=== PATIENT | male | born 1990 | race Caucasian/White ===

== ENCOUNTER 2020-09-14 07:51 | Emergency (ER) | payer SELFPAY ==
[~2020-09-14] VITALS: Ht 162.6 cm; Wt 72.0 kg
[2020-09-14] MEDS ORDERED: CLIN300C12 MT (08:21)
[2020-09-14] MEDS ORDERED: AMOX-424 MT (08:21)
[2020-09-14] MEDS ORDERED: IBUP-2029 MT (08:21)
[2020-09-14] MEDS ORDERED: IBUPROFEN 600MG TABLET PO ONE (08:30)
[2020-09-14 09:22] VITALS: BP 112/89
== END 2020-09-14 09:24 | disposition home or self-care (01) ==
LOC: ER 07:51
DX: L02.31 Cutaneous abscess of buttock (principal)
CPT/HCPCS: 99282

== ENCOUNTER 2020-09-17 21:32 | Emergency (ER) | payer SELFPAY ==
[~2020-09-17] VITALS: Ht 162.6 cm; Wt 76.0 kg
[~2020-09-17 21:32] MED LIST: AMOX-424 MT; CLIN300C12 MT; IBUP-2029 MT
[2020-09-17] MEDS ORDERED: TETANUS, DIPHTHERIA, PERTUSSIS VAC/PF 0.5ML (>7YR OLD) IM ONE (22:30)
[2020-09-17 22:43] VITALS: BP 131/89
== END 2020-09-17 22:45 | disposition home or self-care (01) ==
LOC: ER 21:32
DX: L02.31 Cutaneous abscess of buttock (principal)
CPT/HCPCS: 90471; 90715; 99283